=== PATIENT | male | born 1975 | race Caucasian/White ===

== ENCOUNTER 2018-11-25 15:40 | Emergency (ER) | payer OTHER ==
[2018-11-25] MEDS ORDERED: Adacel (T-DAP) 0.5 ML SYRINGE ONE (15:53)
--- NOTE | 2018-11-25 16:20 | RAD ---
3 views left index finger: 11/25/2018 COMPARISON: None HISTORY: Trauma FINDINGS: No displaced fracture or dislocation is seen. There is a subtle lucency at the volar base o f the second distal phalanx on the lateral view which could be artifactual or could represent a nondisplaced fracture. The other 2 views are unremarkable. Clinical correlation required. IMPRESSION: Subtle lucency along the volar base of the second distal phalanx as detailed above.
== END 2018-11-25 17:22 | disposition home or self-care (01) ==
LOC: SCSER 15:40
DX: S61.211A Laceration without foreign body of left index finger without damage to nail, initial encounter (principal); F41.9 Anxiety disorder, unspecified; Z79.899 Other long term (current) drug therapy; W23.0XXA Caught, crushed, jammed, or pinched between moving objects, initial encounter
CPT/HCPCS: 90471; 90715